=== PATIENT | male | born 1960 | race Caucasian/White ===

== ENCOUNTER 2019-04-25 11:55 | Outpatient (CLI) | payer OTHER, SELFPAY ==
--- NOTE | ~2019-04-25 | US_ITS ---
EXAMINATION: US venous doppler LE EXAM DATE: 04/25/2019 12:28 INDICATION: History DVT. Right leg pain. TECHNIQUE: Multiple grayscale, color flow and Doppler images of the right lower extremity deep venous system obtained and reviewed. Comparison is made to prior examination from 12/18/2018. FINDINGS: RIGHT SIDE Common femoral: -------- Normal. Profunda femoral: ------- Normal. Femoral: Thrombosed. Popliteal: Thrombosed. Posterior tibial: ---------Thrombosed. Peroneal: Thrombosed. Gastrocnemius: Thrombosed. Soleus: Not visualized. Greater saphenous: ----- Normal. Lesser saphenous: ------ Not visualized. IMPRESSION: 1. Extensive right lower extremity DVT Patient is waiting for results to this STAT hold and call exam. Reviewed, dictated and finalized at location B. RVISOR EDGING
== END 2019-04-25 11:56 | disposition home or self-care (01) ==
PROVIDERS: PCP Family Medicine; Visit Provider Physician Assistant Medical
DX: I82.891 Chronic embolism and thrombosis of other specified veins (principal)
CPT/HCPCS: 93971

== ENCOUNTER 2020-10-31 09:45 | Emergency (ER) | payer OTHER, SELFPAY ==
--- NOTE | ~2020-10-31 | XR_ITS ---
EXAMINATION: XR shoulder LT min 2V DATE: 10/31/2020 10:21 INDICATION: Left shoulder pain. TECHNIQUE: 4 views of left shoulder were obtained. COMPARISON: None. FINDINGS: Bone alignment is normal. No fracture. There is mild osteoarthritis of glenohumeral joint a nd moderate osteoarthritis of acromioclavicular joint. There is a left chest pacer with lead in right ventricle. IMPRESSION: 1. Polyarticular osteoarthritis. Reviewed, dictated and finalized at location B.
[2020-10-31 09:49] VITALS: BP 167/96; PULSE 73; RESP 18; TEMP 36.6; O2SAT 95
--- NOTE | 2020-10-31 12:02 | ED.UPPEXIN ---
HPI - Extremity Injury (Upper) General Chief Complaint: Extremity Injury, Upper Stated Complaint: L shoulder pain, fall yesterday Time Seen by Provider: 10/31/20 11:25 Source: patient Mode of arrival: ambulatory Limitations: no limitations History of Present Illness HPI narrative: 59-year-old male Here complaining of posterior left shoulder pain after a ground-level trip and fall yesterday He landed on the back of the shoulder There was no reaching or hyperextension or anything like that involved Primarily he has discomfort when he tries to lift his arm up No numbness or weakness in the forearm He did not hit his head, he does not have any neck or back pain, does not have any neuro symptoms, no trouble breathing Related Data Home Medications Medication Instructions Recorded Confirmed vit A 1,000 unit-C 200 mg-E 60 1 tablet PO DAILY 02/15/19 09/04/20 unit-lutein 2 mg and minerals tablet astaxanthin 4 mg capsule mg PO DAILY cap 08/07/20 09/04/20 Allergies Allergy/AdvReac Type Severity Reaction Status Date / Time No Known Allergies Allergy Verified 10/31/20 11:28 Review of Systems Review of Systems: All systems reviewed & are unremarkable except as noted in HPI and below Constitutional: Constitutional: Denies headache(s) ENT: Denies headache(s) Cardiovascular: Cardiovascular: Denies chest pain and Denies dyspnea Respiratory: Respiratory: Denies cough and Denies dyspnea Gastrointestinal: Gastrointestinal: Denies nausea Musculoskeletal: Musculoskeletal: Denies back pain, Denies deformity, Reports arthralgias, Denies joint swelling and Denies numbness Integumentary/Breasts: Skin/Breast: Denies rash and Denies wounds Neurologic: Denies focal weakness and Denies numbness [facility] Past Medical History Medical History (Updated 10/31/20 @ 12:04 by Ferdinand Briscoe MD) Colon polyp Deviated septum (~1994) Dislocation, shoulder (~2001) H/O blood clots Hypertension Hypothyroid ICD (implantable cardioverter-defibrillator) battery depletion ICD (implantable cardioverter-defibrillator), single, in situ Shingles (~08/14/17) Surgical History Surgical History H/O cardiac radiofrequency ablation History of hip replacement (~07/08/18) left hip 2019 History of right hip replacement (~12/29/19) Dr. 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[employer] Gender identity (if verbalized by the patient): Male Exam Const: General: cooperative, no acute distress and alert Orientation/consciousness: patient oriented x3 (alert) HENMT: Head: normal to inspection, normocephalic, atraumatic, no contusions and no hematomas Eyes: Conjunctivae: conjunctivae normal EOM: EOMs intact bilaterally Neck: Neck: normal visual inspection, supple and no JVD Chest: Other: There is no rib tenderness just tenderness over the lower part of the scapula on the left Resp: Effort & Inspection: normal respiratory effort Auscultation: clear to auscultation bilaterally and other (BS =) Skin: General skin exam: normal color and no rashes or lesions noted Neuro: General: patient oriented x3 (alert) and moves all extremities Speech: normal speech Extrem: General: normal to inspection Other: No swelling or deformity to the left shoulder, no tenderness to the AC joint, pretty good active range of motion in all directions with the exception that resisted external rotation is painful
== END 2020-10-31 12:16 | disposition home or self-care (01) ==
PROVIDERS: Emergency Provider Emergency Medicine; PCP Family Medicine
DX: S40.012A Contusion of left shoulder, initial encounter (principal); Z86.010 Personal history of colon polyps; I10 Essential (primary) hypertension; E03.9 Hypothyroidism, unspecified; Z95.810 Presence of automatic (implantable) cardiac defibrillator; Z96.643 Presence of artificial hip joint, bilateral; M19.012 Primary osteoarthritis, left shoulder; W01.0XXA Fall on same level from slipping, tripping and stumbling without subsequent striking against object, initial encounter
CPT/HCPCS: 73030; 99283; A4565

== ENCOUNTER 2022-08-05 10:45 | Outpatient (RCR) | payer BC, SELFPAY ==
[2022-06-17 10:50] VITALS: BMI 33.5
[2022-06-17 10:51] VITALS: BMI 33.5
[2022-07-08 09:40] VITALS: BMI 33.0
[2022-08-05 10:47] VITALS: BMI 33.1
[2022-08-05 12:11] VITALS: BMI 33.1
== END 2022-08-31 08:43 | disposition home or self-care (01) ==
LOC: ANHDMC 10:45
PROVIDERS: PCP Family Medicine; Visit Provider Family Medicine
DX: R73.03 Prediabetes (principal); Z71.3 Dietary counseling and surveillance
CPT/HCPCS: 97802; 97803

== ENCOUNTER 2022-09-09 02:23 | Day surgery (SDC) | payer BC, SELFPAY ==
[2022-09-02 13:06] VITALS: BMI 33.1
[2022-09-09 12:32] VITALS: BP 133/97; PULSE 65; RESP 18; TEMP 36.1; O2SAT 98
--- NOTE | 2022-09-09 12:39 | PM.HPGS ---
History of Present Illness History of Present Illness Consent: Risks, benefits, and alternatives have been discussed and questions answered. Patient agrees to proceed with procedure. Chief complaint: hx colon polyps Narrative: Ferdinand Rosario is a 61 year old male Referred for colon cancer screening. Seven years ago he had 3 polyps removed at least 1 of which was an adenoma. [facility] Past Medical History Medical History Colon polyp Deviated septum (~1994) Dislocation, shoulder (~2001) H/O blood clots Hypertension Hypothyroid ICD (implantable cardioverter-defibrillator) battery depletion ICD (implantable cardioverter-defibrillator), single, in situ Shingles (~08/14/17) Surgical History Surgical History H/O cardiac radiofrequency ablation History of hip replacement (~07/08/18) left hip 2019 History of right hip replacement (~12/29/19) Dr. Swan Family History Family History Mother Heart disease Hypertension Father Heart disease Hypertension Cancer Other Family history of cardiovascular disease Social History Social History Smoking status: Never smoker Alcohol intake: current Alcohol use details: occasional Lack of Transportation: No Lack of Food: Never True Current Housing: I Have Housing Concerned About Future Housing: No Difficulty Paying Gas/Electric Bills: No Difficulty Paying for Meds: No Currently Unemployed: No Education: High School Diploma/GED Difficulty w/ Childcare or Family Care: No Living arrangements: with family Additional living arrangements comments: Janie Rosario - Occupation/Education: occupation 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 Gender identity (if verbalized by the patient): Male Spiritual care concerns: Yes (refusal of blood products) Meds Home Medications and Allergies Home Medications Medication Instructions Recorded Confirmed Type vit A 300 mcg-C 200 mg-E 27 1 tablet PO DAILY 02/15/19 09/02/22 History mg-lutein 2 mg and minerals tablet (Ocuvite with Lutein) astaxanthin 4 mg capsule 4 mg PO DAILY 08/07/20 09/02/22 History fluoxetine 20 mg capsule (Prozac) 20 mg PO DAILY #90 caps 10/27/21 09/02/22 Rx atorvastatin 10 mg tablet 10 mg PO QHS #90 tabs 11/10/21 09/02/22 Rx metoprolol succinate 50 mg 25 mg PO BID #180 tabs 01/21/22 09/09/22 Rx tablet,extended release 24 hr losartan 25 mg tablet 25 mg PO BID #180 tabs 02/11/22 09/02/22 Rx levothyroxine 100 mcg tablet 100 mcg PO DAILY #90 tabs 03/30/22 09/09/22 Rx (Synthroid) Allergies Allergy/AdvReac Type Severity Reaction Status Date / Time No Known Allergies Allergy Verified 09/02/22 13:02 Vital Signs Vital Signs - 24 hr 09/09/22 12:32 Temperature 36.1 C L Pulse Rate 65 Respiratory Rate 18 Blood Pressure 133/97 H Pulse Oximetry 98 Oxygen Delivery Room Air Assessment and Plan Assessment and plan (1) Colon cancer screening: Code(s): Z12.11 - Encounter for screening for malignant neoplasm of colon Status: Acute Assessment and Plan: Colonoscopy with possible biopsy or polypectomy or cautery or injection of substances.
[2022-09-09] MEDS: LACTATED RINGERS 1,000 ML 150 ML IV CONT (12:53)
[2022-09-09 12:57] LABS: Glucose Point of Care 103 mg/dl (65-105)
--- NOTE | 2022-09-09 13:00 | WPDANESEPPF ---
Anes - Initial Pre Proc Eval Procedure: Operation Date: 09/09/22 14:00 Proposed Procedures p Colonoscopy - Mikie Lora MD Date/Time: 09/09/22 13:00 Surgeon: Mikie Lora MD Pre Op Diagnosis: hx colon polyps Patient Data Age: 61 Gender: M Height: 1.91 m Weight: 115.6 kg Last Vital Signs Temp 97 F L 09/09/22 12:32 Pulse 65 09/09/22 12:32 Resp 18 09/09/22 12:32 BP 133/97 H 09/09/22 12:32 Pulse Ox 98 09/09/22 12:32 O2 Del Method Room Air 09/09/22 12:32 Allergies Allergy/AdvReac Type Severity Reaction Status Date / Time No Known Allergies Allergy Verified 09/02/22 13:02 Home Medications Medication Instructions Recorded Confirmed Type vit A 300 mcg-C 200 mg-E 27 1 tablet PO DAILY 02/15/19 09/02/22 History mg-lutein 2 mg and minerals tablet (Ocuvite with Lutein) astaxanthin 4 mg capsule 4 mg PO DAILY 08/07/20 09/02/22 History fluoxetine 20 mg capsule (Prozac) 20 mg PO DAILY #90 caps 10/27/21 09/02/22 Rx atorvastatin 10 mg tablet 10 mg PO QHS #90 tabs 11/10/21 09/02/22 Rx metoprolol succinate 50 mg 25 mg PO BID #180 tabs 01/21/22 09/09/22 Rx tablet,extended release 24 hr losartan 25 mg tablet 25 mg PO BID #180 tabs 02/11/22 09/02/22 Rx levothyroxine 100 mcg tablet 100 mcg PO DAILY #90 tabs 03/30/22 09/09/22 Rx (Synthroid) Laboratory Tests 09/09/22 12:38 POC Capillary Glucose 103 mg/dl (65-105) Patient hx anesthesia problems: none Family hx anesthesia problems: none Results Review: All pre-operative results and documents have been reviewed as part of the pre-operative evaluation. [facility] Past Medical History Medical History Colon polyp Deviated septum (~1994) Dislocation, shoulder (~2001) H/O blood clots Hypertension Hypothyroid ICD (implantable cardioverter-defibrillator) battery depletion ICD (implantable cardioverter-defibrillator), single, in situ Shingles (~08/14/17) Surgical History Surgical History H/O cardiac radiofrequency ablation History of hip replacement (~07/08/18) left hip 2019 History of right hip replacement (~12/29/19) Dr. Swan Family History Family History Mother Heart disease Hypertension Father Heart disease Hypertension Cancer Other Family history of cardiovascular disease Social History Social History Smoking status: Never smoker Alcohol intake: current Alcohol use details: occasional Lack of Transportation: No Lack of Food: Never True Current Housing: I Have Housing Concerned About Future Housing: No Difficulty Paying Gas/Electric Bills: No Difficulty Paying for Meds: No Currently Unemployed: No Education: High School Diploma/GED Difficulty w/ Childcare or Family Care: No Living arrangements: with family Additional living arrangements comments: Janie Solle - Occupation/Education: occupation 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[employer] Gender identity (if verbalized by the patient): Male Spiritual care concerns: Yes (refusal of blood products) Anes - Eval Final PreProcedure Day of Procedure 09/09/22 13:00 Patient weight: obese Heart: regular rate and rhythm Lungs: clear to auscultation Airway: Mallampati scale class II Neurological: alert and oriented Last oral intake: >/= 8 hours ASA classification: III Emergent: no Anesthetic plan: proceed Anesthesia type and monitoring: general GIVS and standard monitoring Results Review: All pre-operative results and documents have been reviewed as part of the pre-operative evaluation. Informed Consent: The patient's anesthetic plan and its attendant risks and benefits were discussed with the patient/family/POA. Questions were solicited and answers pro
[2022-09-09 13:40] VITALS: BP 122/82; PULSE 60; RESP 15; O2SAT 96
[2022-09-09 13:50] VITALS: BP 123/83; PULSE 58; RESP 20; O2SAT 99
[2022-09-09 14:00] VITALS: BP 124/84; PULSE 62; RESP 20; O2SAT 99
== END 2022-09-09 14:13 | disposition home or self-care (01) ==
PROVIDERS: PCP Family Medicine; Visit Provider Internal Medicine Gastroenterology
PROC: 0DJD8ZZ Inspection of Lower Intestinal Tract, Via Natural or Artificial Opening Endoscopic (ICD-10-PCS; CPT 45378; principal; 2022-09-09 14:00)
DX: Z12.11 Encounter for screening for malignant neoplasm of colon (principal); K57.30 Diverticulosis of large intestine without perforation or abscess without bleeding; D12.2 Benign neoplasm of ascending colon; I10 Essential (primary) hypertension; E03.9 Hypothyroidism, unspecified; Z95.810 Presence of automatic (implantable) cardiac defibrillator; E66.9 Obesity, unspecified; Z68.31 Body mass index [BMI] 31.0-31.9, adult; Z79.899 Other long term (current) drug therapy
CPT/HCPCS: 45385; 82948; 88305; J2704; J7120

== ENCOUNTER 2023-03-26 08:08 | Emergency (ER) | payer OTHER, BC, SELFPAY ==
--- NOTE | ~2023-03-26 | XR_ITS ---
XR foot RT min 3V DATE: 03/26/2023 08:39 INDICATION: Dropped box of hyaline to right foot. Right foot pain. TECHNIQUE: 4 views COMPARISON: None FINDINGS: There is a comminuted fracture of the tuft of the lateral aspect of the distal phalanx of t he great toe. No other fracture or dislocation is evident. Second through fifth hammertoe deformities. Moderate osteoarthritis at the first metatarsophalangeal joint and tarsal joints. Plantar and posterior calcaneal enthesopathy. IMPRESSION: Comminuted fracture of tuft of distal phalanx of great toe Reviewed, dictated and finalized at location B. SHOE CUTTER
--- NOTE | 2023-03-26 08:18 | ED.LOWEXIN ---
HPI - Extremity Injury (Lower) General Chief Complaint: Extremity Injury, Lower Stated Complaint: Injured foot Source: patient, RN notes reviewed and old records reviewed Mode of arrival: ambulatory Limitations: no limitations History of Present Illness HPI Narrative: 62-year-old male patient presents to [facility] complaint of right great toe pain that started last p.m after patient dropped 25 lb box of tile on to toe. Toe is not swollen painful and bruised was bleeding noted. patient denies any other injury. MD complaint: foot injury Injury: Right: toes ( great toe) Type of Injury: blunt and other ( smash injury) Related Data Home Medications Medication Instructions Recorded Confirmed vit A 300 mcg-C 200 mg-E 27 1 tablet PO DAILY 02/15/19 03/26/23 mg-lutein 2 mg and minerals tablet (Ocuvite with Lutein) vit C 250 mg-vit E 90 mg-zinc 40 1 tablet PO BID 03/26/23 03/26/23 mg-copper 1 nn-xklccz-xynics capsule (PreserVision AREDS-2) Allergies Allergy/AdvReac Type Severity Reaction Status Date / Time No Known Allergies Allergy Verified 03/26/23 08:17 Review of Systems Constitutional: Constitutional: Reports no additional constitutional complaints, Denies body ache(s), Denies chills, Denies fatigue, Denies fever(s) and Denies headache(s) Eyes: Eyes: Reports no additional eye complaints and Denies blurry vision ENT: Reports system reviewed and no additional complaints, except as documented, Denies vertigo, Denies dizziness, Denies ear discharge, Denies otalgia, Denies facial pain, Denies headache(s), Denies nasal congestion, Denies nasal discharge, Denies sinus pain, Denies sinus pressure and Denies sore throat Cardiovascular: Cardiovascular: Reports no additional cardiovascular complaints, Denies chest pain, Denies chest pain at rest, Denies rapid heart rate and Denies dyspnea Respiratory: Respiratory: Reports no additional respiratory complaints, Denies chest congestion, Denies cough, Denies pain on inspiration, Denies pain with cough and Denies dyspnea Gastrointestinal: Gastrointestinal: Denies abdominal pain, Denies diarrhea, Denies nausea and Denies vomiting Musculoskeletal: Musculoskeletal: Reports as per HPI and Reports other ( right great toe swelling and bruising) Integumentary/Breasts: Skin/Breast: Denies rash and Reports wounds Neurologic: Reports system reviewed and no additional complaints, except as documented, Denies vertigo, Denies dizziness and Denies headache(s) Endocrine: Endocrine: Denies fatigue PMFSH Past Medical History Medical History Colon polyp Deviated septum (~1994) Dislocation, shoulder (~2001) H/O blood clots Hypertension Hypothyroid ICD (implantable cardioverter-defibrillator) battery depletion ICD (implantable cardioverter-defibrillator), single, in situ Shingles (~08/14/17) Surgical History Surgical History H/O cardiac radiofrequency ablation History of hip replacement (~07/08/18) left hip 2019 History of right hip replacement (~12/29/19) Dr. Swan Family History Family History Mother Heart disease Hypertension Father Heart disease Hypertension Cancer Other Family history of cardiovascular disease Social History Social History Smoking status: Never smoker Alcohol intake: current Alcohol use details: occasional Lack of Transportation: No Lack of Food: Never True Current Housing: I Have Housing Concerned About Future Housing: No Difficulty Paying Gas/Electric Bills: No Difficulty Paying for Meds: No Currently Unemployed: No Education: High School Diploma/GED Difficulty w/ Childcare or Family Care: No Living arrangements: with family Additional living arrangements comments: Janie Abraham - Occup
[2023-03-26 08:19] VITALS: BP 126/104; PULSE 74; RESP 16; TEMP 36.3; O2SAT 99
== END 2023-03-26 09:17 | disposition home or self-care (01) ==
PROVIDERS: Emergency Provider Registered Nurse; PCP Family Medicine
DX: S92.421A Displaced fracture of distal phalanx of right great toe, initial encounter for closed fracture (principal); E03.9 Hypothyroidism, unspecified; I10 Essential (primary) hypertension; W20.8XXA Other cause of strike by thrown, projected or falling object, initial encounter
CPT/HCPCS: 73630; 99214; G0463

== ENCOUNTER 2023-06-23 07:51 | Outpatient (CLI) | payer BC, SELFPAY | END 2023-06-23 07:52 | disposition home or self-care (01) | PROVIDERS: PCP Family Medicine; Visit Provider Family Medicine | DX: H90.3 Sensorineural hearing loss, bilateral (principal) | CPT/HCPCS: 92557; 92567 ==

== ENCOUNTER 2024-10-04 15:30 | Outpatient (CLI) | payer BC, SELFPAY ==
--- OUTSIDE RECORDS SUMMARY | 2024-10-04 15:32 | XMS_ITS | Clinical Summary ---
Author Organization [facility] Address [address] [place] [address] Care Team Providers Care Shoe Repairer Apprentice Name Role Phone Austin Mcgrath MD Primary Care Provider [phone] Source Comments [facility],non-owned Affiliates and Associated Physician Practices is amultiple site organization consisting of ambulatory clinics and hospital sitesin [place], [place] and [place]. This disclosure is being madepursuant to the Care Everywhere program and may not contain all information available regarding this patient. Last updated [employer] [facility] Allergies No known active allergies Medications * Be aware that medications may not be up to date on this document. Alwaysverify current medications with the patient. aspirin (ASPIRIN) 81 MG chew tablet Take 81 mg by mouth once daily Active mirabegron ER 24hr (MYRBETRIQ) 25 MG tablet Take 25 mg by mouth once daily Active triamterene-hydr oCHLOROthiazide (DYAZIDE) 37.5-25 MG capsule Take by mouth once daily 6 06/03/2016 Active CARTIA XT 180 MG capsule Take 180 mg by mouth once daily 5 06/03/2016 Active losartan (COZAAR) 25 MG tablet Take one tablet by mouth every day 30 tablet 11 01/12/2017 Active Active Problems Problem Noted Date Diagnosed Date NSVT (nonsustained ventricular tachycardia) 06/14 Benign essential HTN 07/03/2016 Atrial fibrillation 07/03/2016 Social History Tobacco Use Types Packs/Day Years Used Date Smoking Tobacco: Never Sex and Gender Information Value Date Recorded Sex Assigned at Male 04/19/2023 11:07 AM 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 Legal Sex Male 6:58 AM [employer] 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 Gender Identity Male 04/19/2023 11:07 AM [employer] 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 Sexual Orientation Straight 04/19/2023 11 :07 AM [employer] 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 Last Filed Vital Signs Vital Sign Reading Time Taken Comments Blood Pressure 134/90 07/01/2016 3:03 PM CDT Pulse 72 07/01/2016 3:03 PM CDT Temperature 36.6 C (97.8 F) 03/08/2016 12:12 PM 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 Respiratory Rate 18 07/01/2016 3:03 PM CDT Oxygen Saturation 96% 03/08/2016 12:12 PM 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 Inhaled Oxygen Concentration - - Weight 117.9 kg (260 lb) 07/01/2016 3:03 PM CDT Height 190.5 cm (6' 3) 07/01/2016 3:03 PM CDT Body Mass Index 32.5 07/01/2016 3:03 PM CDT Plan of Treatment Health Maintenance Due Date Last Done Comments COLOGUARD (AGES 45-75) - COL ON CA SCREENING 1962 COLON MONITORING 1962 COLONOSCOPY - COLON CA SCREENING 1962 CT COLONOGRAPHY - COLON CA SCREENING 1962 Colorectal Cancer Screening 1962 FIT - COLON CA SCREENING 1962 FLEX SIG - COLON CA SCREENING 1962 LIPID TESTING 1962 HIV SCREENING 1977 HEPATITIS C SCREENING 12/01/1980 DTAP/TDAP/TD VACCINES (1 - Tdap) 1981 PNEUMOCOCCAL VACCINE 50+ (1 of 1 - PCV) 2012 ZOSTER VACCINE (1 of 2) 2012 SCREENING FOR DIABETES 03/08/2019 6, 03/07/2016 COVID-19 VACCINE (1 - 2023-2 5 season) 2023 DEPRESSION SCREENING 03/15/2024 INFLUENZA VACCINE (#1) 2024 Respiratory Syncytial Virus (RSV) Vaccine Pt: or over 60 yrs (1 - 1-dose 75+ series) 2037 HEPATITIS B VACCINE Aged Out No longe r eligible based on patient's age to complete this topic HIB VACCINE Aged Out No longer eligi ble based on patient's age to complete this topic HPV VACCINE Aged Out No longer eligi ble based on patient's age to complete this topic MENINGOCOCCAL (Group B) VACCINE SHARED DECISION-MAKING Aged Out No longer eligible based on patient's age to complete this topic MENINGOCOCCAL GROUPS A/C/Y/W VACCINE Aged Out No longer eligible b ased on patient's age to complete this topic Procedures Procedure Name Priority Date/Time Associated Diagnosis Comments BASIC METABOLIC PANEL (CALCIUM TOTAL) AM Draw 03/08/2016 4:09 AM 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 Atrial fibrillation with RVR from Last 3 Months or Most Recently Relevant to Health Maintenance Results * (ABNORMAL) BASIC METABOLIC PANEL (CALCIUM TOTAL) (03/08/2016 4:09 AM [facility]) Glucose 117(H) 74 - 106 mg/dL 03/08/2016 4:34 AM [facility] Sodium 139 136 - 145 mmol/L 03/08/2016 4:34 AM [facility] Potassium 4.4 3.5 - 5.1 mmol/L 03/08/2016 4:34 AM [facility] Chloride 107 98 - 107 mmol/L 03/08/2016 4:34 AM [facility] CO2 25 22 - 31 mmol/L 03/08/2016 4:34 AM [facility] Calcium 8.7 8.5 - 10.1 mg/dL 03/08/2016 4:34 AM [facility] Anion Gap 7(L) 8 - 16 mmol/L 03/08/2016 4:34 AM [facility] BUN 15 7 - 21 mg/dL 03/08/2016 4:34 AM [facility] Creatinine 1.10 0.50 - 1.30 mg/dL 03/08/2016 4:34 AM [facility] eGFR by MDRD >60 >60 mL/min/1.7 3m2 03/08/2016 4:34 AM [facility] eGFR by MDRD >60 >60 mL/min/1.7 3m2 03/08/2016 4:34 AM [facility] Blood BLOOD SPECIMEN / Unknown 03/08/2016 4:09 AM 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 03/08/2016 4:14 AM [facility] Mani Jackson MD LAB - CHEMISTRY ORDERABLES Kelly l Result [facility] [id number] [place] [address] from Last 3 Months or Most Recently Relevant to Health Maintenance Insurance [facility] BCBS/[employer] [facility] [facility] Advance Directives Documents on File Type Date Recorded Patient Hog Killer Expl anation Adv Directive/Living Will/POA 03/10/2016 9:45 PM * Full Code (Latest Code Status on File) Date Activated Date Inactivated Comments 03/07/2016 8:46 AM 03/08/2016 4:56 PM Care Teams Shoe Repairer Apprentice Relationship Specialty Start Date End Date Austin Mcgrath MD [address] [place] [address] PCP - General Family Medicine 03/07/16
--- OUTSIDE RECORDS SUMMARY | 2024-10-04 15:32 | XMS_ITS | Clinical Summary ---
Author Organization [facility] Address [facility] [place] [address] Care Team Providers Care Parking Enforcement Specialist Name Role Phone Austin Mcgrath MD Primary Care Provider [phone]- [phone] Alejandro Johnson MD Unavailable Allergies No known active allergies Medications losartan 25 MG tablet Take 1 tablet (25 mg total) by mouth 2 (two) times daily. 7 Active metoprolol succinate ER 50 MG 24 hr tablet Take 1 tablet (50 mg total) by mouth daily. 90 tablet 3 0 Active Additional Information Patient taking differently: 25 mgOral2 times daily, Reported on 06/21/2023 levothyroxine 100 MCG tablet Take 1 tablet (100 mcg total) by mouth daily. 1 Active atorvastatin (LIPITOR) 10 MG tablet Take 1 tablet (10 mg total) by mouth nightly at bedtime. at bedtime 2 Active multi vitamin/mineral s (PRESERVISION AREDS) Tab 3 Active sertraline (ZOLOFT) 25 MG tablet Take 1 tablet (25 mg total) by mouth daily. 4 Active metFORMIN ER (GLUCOPHAGE-XR) 500 MG 24 hr tablet Take 1 tablet (500 mg total) by mouth daily with breakfast. 4 Active Active Problems Problem Noted Date Diagnosed Date ICD (implantable cardioverter-defibrillator) in place 06/16/2022 CHF (congestive heart failure) ([facility]) 12/28/2019 History of DVT (deep vein thrombosis) 12/28/2019 Hypothyroidism affecting ([facility]) Ventricular tachycardia ([facility]) 2018 VT (ventricular tachycardia) ([facility]) 1 03/27/2018 Syncope and collapse 01/24/2019 Atrial fibrillation ([facility]) 07/03/2016 Benign essential HTN 07/03/2016 Encounters Date Type Department Care Team Description 08/14/2024 11:40 AM CDT Allied Health/Nurse Visit [facility], [address] [address] Alejandro Johnson MD Remote Device Check from Last 3 Months Immunizations Immunization Administration Dates Next Due Afluria 36 MONTHS+ (Prefilled Syringe IIV4) 01/13(Deferred: Other) Family History Medical History Relation Comments pacemaker Father Sudden Mother Relation Status Comments Father Mother Social History Tobacco Use Types Packs/Day Years Used Date Smoking Tobacco: Never Smokeless Tobacco: Never Tobacco Cessation:Counseling Given: Not Answered Sex and Gender Information Value Date Recorded Sex Assigned at Not on file Legal Sex Male 8:05 PM CDT Gender Identity Not on file Sexual Orientation Not on file Last Filed Vital Signs Vital Sign Reading Time Taken Comments Blood Pressure 120/78 06/19/2024 9:36 AM CDT Pulse 72 06/19/2024 9:36 AM CDT Temperature 36.8 C (98.2 F) 04/12/2019 8:30 AM 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 [address] [place], [place] [address] 06/25/2025 9:00 AM CDT Office Visit [facility], [address] [place], [place] [id number] Alejandro Johnson MD [facility]. [address] [place], [place] [id number] Health Maintenance Due Date Last Done Comments Colorectal Cancer Screening Colonoscopy (10 Years) 1962 Annual Physical 1965 Hepatitis C 1980 DTaP, Tdap and Td Vaccines ( 1 - Tdap) 1981 Pneumococcal Vaccine: 50+ Years (1 of 2 - PCV) 1981 Zoster Vaccines (1 of 2) 2012 RSV Immunization or 60+ Years (1 - Risk 60-74 years 1-dose series) 2022 COVID-19 Vaccine (3 - 2023-2 5 season) 2023 06/07/2020, 05/10/2020 Meningococcal B Vaccine Aged Out No l onger eligible based on patient's age to complete this topic Meningococcal Vaccine Aged Out No norma padma eligible based on patient's age to complete this topic RSV Immunizations Under 20 Months Aged Out No longer eligible b ased on patient's age to complete this topic Medical Devices Implanted Type Area Lard Renderer Device Identifier Shelf Expiration Date Model / Serial / Lot Bs Icd-03/22/2019 Implanted:10/2019 by Alejandro Johnson MD (Quantity not on file) ICD [employer] [id number] / [id number] / Rv Lead-03/22/2019 Implanted:10/2019 by Alejandro Johnson MD (Quantity not on file) Lead Implant [employer] [id number] / [id number] / Insurance Advance Directives Documents on File Type Date Recorded Patient Flare Worker Expl anation Advance Directives and Living Will 03/23/2019 7:17 AM 06-03-10 Signed POA f or Health Care * Full Code (Latest Code Status on File) Date Activated Date Inactivated Comments 04/11/2019 4:27 PM 04/12/2019 1:05 PM * Full Code Date Activated Date Inactivated Comments 04/11/2019 3:41 PM 04/11/2019 4:27 PM * Full Code Date Activated Date Inactivated Comments 03/22/2019 12:40 PM 03/23/2019 12:41 PM * Full Code Date Activated Date Inactivated Comments 01/25/2019 2:48 PM 01/26/2019 6:54 PM * Full Code Date Activated Date Inactivated Comments 01/25/2019 1:06 PM 01/25/2019 2:48 PM Care Teams Parking Enforcement Specialist Relationship Specialty Start Date End Date Austin Mcgrath MD PCP - General FAMILY PRACTICE 01/25/19 Alejandro Johnson MD [address] [address] EP Director Distribution CLINICAL CARDIAC ELECTROPHYSIOLOGY 02/07/19
--- OUTSIDE RECORDS SUMMARY | 2024-10-04 15:33 | XMS_ITS | Encounter Summary ---
Author Organization [facility] Address [facility] [place] [address] Care Team Providers Care Prepress Stripper Name Role Phone Austin Mcgrath MD Primary Care Provider +1- [phone] Alejandro Johnson MD Unavailable Encounter Details Date Type Department Care Team (Late st Contact Info) Description 04/10/2019 Hospital Orders Only [facility], [facility] [address] [place], [place] [id number] Alejandro Johnson MD [facility]. [facility] [address] [place], [place] [id number] Social History Tobacco Use Types Packs/Day Years Used Date Smoking Tobacco: Never Smokeless Tobacco: Never Sex and Gender Information Value Date Recorded Sex Assigned at Not on file Legal Sex Male 8:05 PM CDT Gender Identity Not on file Sexual Orientation Not on file documented as of this encounter Functional Status * RETIRED Are you deaf or do you have serious difficulty hearing Answer Date of Assessment Author Status No 03/22/2019 1:00 PM DATA LEAD Activ e * RETIRED Are you blind or do you have serious difficulty seeing, even when wearing glasses? Answer Date of Assessment Author Status No 03/22/2019 1:00 PM DATA LEAD Activ e * Do you have serious difficulty walking or climbing stairs? Answer Date of Assessment Author Status No 03/22/2019 1:00 PM DATA LEAD Glenna Hutchison RN Active * Do you have difficulty dressing or bathing? Answer Date of Assessment Author Status No 03/22/2019 1:00 PM Glenna Dubois RN Active * Because of a physical, mental, or emotional condition, do you have difficulty doing errands alone such as visiting a doctor's office or shopping? Answer Date of Assessment Author Status No 03/22/2019 1:00 PM Glenna Dubois RN Active documented as of this encounter Mental Status * Because of a physical, mental, or emotional condition, do you have serious difficulty concentrating, remembering, or making decisions? Answer Entry Date Author Status No 03/22/2019 1:00 PM Glenna Dubois RN Active documented in this encounter Plan of Treatment Upcoming Encounters Date Type Department Care Team (Late st Contact Info) Description 11/13/2024 11:40 AM CDT Allied Health/Nurse Visit [place] [facility], [address] [place], [place] [address] Alejandro Johnson MD [facility]. [address] [place], [place] [address] 06/25/2025 9:00 AM CDT Office Visit [place] [facility], [address] [place], [place] [phone] Alejandro Johnson MD [facility]. [address] [place], [place] [address] documented as of this encounter Visit Diagnoses Diagnosis VT (ventricular tachycardia) ([facility])- Primary Paroxysmal ventricular tachycardia documented in this encounter Care Teams Prepress Stripper Relationship Specialty Start Date End Date Austin Mcgrath MD PCP - General FAMILY PRACTICE 01/25/19 Alejandro Johnson MD [facility]. [address] [place], [place] [address] EP It Corporate Recruiter CLINICAL CARDIAC ELECTROPHYSIOLOGY 02/07/19 documented as of this encounter
--- OUTSIDE RECORDS SUMMARY | 2024-10-04 15:33 | XMS_ITS | Clinical Summary ---
Author Organization [facility] [address] Address [address] [place] [address] Care Team Providers Care Bass Mechanism Maker Name Role Phone Austin Mcgrath MD Primary Care Provider [phone] [phone] Allergies No known active allergies Medications ASTAXANTHIN ORALIndications: eye health Take 1 each by mouth nightly Active levothyroxine (SYNTHROID) 100 mcg tabletIndication s:hypothyroidism Take 100 mcg by mouth industrial design engineer before breakfast 0 Active FLUoxetine (PROzac) 20 mg capsuleIndicatio ns:depression Take 20 mg by mouth nightly 9 Active losartan (COZAAR) 25 mg tabletIndication s:hypertension Take 25 mg by mouth nightly 7 Active metoprolol XL (TOPROL-XL) 50 mg extended release tablet Take 50 mg by mouth nightly 0 Active celecoxib (CeleBREX) 200 mg capsuleIndicatio ns:Osteoarthriti s,Postoperative Acute Pain TAKE 2 PILLS WITH BREAKFAST THE DAY BEFORE SX. TAKE 1 PILL BID AFTER DISCHARGE. 10 capsule 0 Active vit C/vit E/lutein/min/ome ga-3 (OCUVITE ORAL)Indications :eye health Take 1 tablet by mouth nightly Active rivaroxaban (XARELTO) 10 mg tabletIndication s:VTE Prophylaxis Following Ortho Surgery,Preventi on of VTE recurrence Take 1 tablet (10 mg total) by mouth daily for 7 days 7 tablet 0 Active Active Problems Problem Noted Date Diagnosed Date A-fib 12/28/2019 Pacemaker 12/28/2019 Hypertension 12/28/2019 History of DVT (deep vein thrombosis) 12/28/2019 Hypothyroidism 12/28/2019 Class 1 obesity in adult 12/28/2019 CHF (congestive heart failure) 12/28/2019 Primary osteoarthritis of right hip 12/13/2019 Overview (12/13/2019): Added automatically from request for surgery [id number] Syncope and collapse 01/24/2019 Paroxysmal ventricular tachycardia 01/24/2019 Surgical History Surgery Date Site/Laterality Comments TOTAL HIP ARTHROPLASTY 03/15/2018 - 03/14/2019 Left left hip ARTERIAL THROMBECTOMY dvt right leg CARDIAC DEFIBRILLATOR PLACEMENT 03/15/2019 - 04/14/2019 ABLATION for VT COLONOSCOPY Medical History Medical History Date Comments Hypertension OA (osteoarthritis) VT (ventricular tachycardia) (HCC) DVT (deep venous thrombosis) (HCC) A-fib (HCC) Refusal of blood transfusions as patient is Jeho vah's Witness Dilated cardiomyopathy (HCC) Family History Medical History Relation Name Comments COPD Father Heart attack Mother Anesthesia problems Neg Hx Relation Name Status Comments Brother Father (Age 84) heart dise ase//lung cancer//copd Mother heart attack Sister Alive breast cancer Social History Tobacco Use Types Packs/Day Years Used Date Smoking Tobacco: Never Smokeless Tobacco: Never Alcohol Use Standard Drinks/Week Comments Yes 0 (1 standard drink = 0.6 oz pur e alcohol) rare AUDIT-C Answer Date Recorded Frequency of Alcohol Consumption Never 01/24/2019 Average Number of Drinks Not on file 019 Frequency of Binge Drinking Not on file 01/13 Sex and Gender Information Value Date Recorded Sex Assigned at Not on file Legal Sex Male 9:56 AM 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 Gender Identity Male 04/19/2023 10:47 AM 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 Sexual Orientation Straight 04/19/2023 10 :47 AM 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 Obstetrics History Last Filed Vital Signs Vital Sign Reading Time Taken Comments Blood Pressure 122/75 10/03/2020 2:22 PM CDT Pulse 66 10/03/2020 2:22 PM CDT Temperature 36.7 C (98.1 F) 12/30/2019 3:15 AM CDT Respiratory Rate 20 12/30/2019 6:55 AM CDT Oxygen Saturation 97% 12/30/2019 6:55 AM CDT Inhaled Oxygen Concentration - - Weight 118.4 kg (261 lb) 10/03/2020 2:22 PM CDT Height 190.5 cm (6' 3) 10/03/2020 2:22 PM CDT Body Mass Index 32.62 10/03/2020 2:22 PM CDT Plan of Treatment Not on file Medical Devices Implanted Type Area Carriage Operator Device Identifier Shelf Expiration Date Model / Serial / Lot [employer] [id number] Cup 55mm Acetabular Bi Mentum Femoral Proximal Press Fit - Sn/A - [id number] Implanted:Qty: 1 on 12/29/2019 by Andre Swan MD at [facility] Other - see comments Right: Hip [employer] 01/12/2023 [id number] / N/A / [id number] [employer] [id number] Liner 55mm 28mm Acetabular Bi Mentum Femoral Proximal Polyethylene - Sn/A - [id number] Implanted:Qty: 1 on 12/29/2019 by Andre Swan MD at [facility] Other - see comments Right: Hip [employer] [id number] 09/12/2023 [id number] / N/A / [id number] [employer] [id number] Actis Collared Hip 14 6 Standard Offset Stem Femoral - Sn/A - [id number] Implanted:Qty: 1 on 12/29/2019 by Andre Swan MD at [facility] Other - see comments Right: Hip [employer] [id number] 08/12/2029 [id number] / N/A / [id number] [employer] [id number] Articul/Rick 28mm Cementless Hip +8.5mm /14 Taper Head Femoral Latex Free - Sn/A - [id number] Implanted:Qty: 1 on 12/29/2019 by Andre Swan MD at [facility] Other - see comments Right: Hip [employer] 08/12/2024 [id number] / N/A / [id number] Left Hip Replacement Left: Hip Icd-03/22/2019 Implanted:03/22 (Quantity not on file) Left: Chest [place] Insurance [facility] AETNA SIGNATURE Advance Directives For more information, please contact: [phone] Documents on File Type Date Recorded Patient Claims Consultant Expl anation ADVANCE DIRECTIVE 12/21/2019 1:23 PM Power of Horologist-Medical * Full Code (Latest Code Status on File) Date Activated Date Inactivated Comments 12/29/2019 2:58 PM 12/30/2019 6:39 PM Care Teams Bass Mechanism Maker Relationship Specialty Start Date End Date Mulligan, Austin E., MD PCP - General Family Medicine 12/17/18
--- OUTSIDE RECORDS SUMMARY | 2024-10-04 15:33 | XMS_ITS | Referral Summary ---
Author Organization [facility] [address] Address [address] [place] [address] Care Team Providers Care Director Supplier Quality Name Role Phone Austin Mcgrath MD Primary Care Provider +1 -[phone] Allergies No known active allergies Medications ASTAXANTHIN ORALIndications: eye health Take 1 each by mouth nightly Active levothyroxine (SYNTHROID) 100 mcg tabletIndication s:hypothyroidism Take 100 mcg by mouth eye surgeon before breakfast 0 Active FLUoxetine (PROzac) 20 [...] (12/13/2019): Added automatically from request for surgery [id number] Syncope and collapse 01/24/2019 Paroxysmal ventricular tachycardia 01/24/2019 Social History Tobacco Use Types Packs/Day Years [...] on file Legal Sex Male 9:56 AM 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 Other - see comments Right: Hip [employer] 01/12/2023 [id number] / N/A / [id number] [employer] [id number] Liner 55mm 28mm Acetabular Bi Mentum Femoral Proximal Polyethylene - Sn/A - [id number] Implanted:Qty: 1 on 12/29/2019 by Andre Swan MD at [facility] Other - see comments Right: Hip [employer] [id number] 09/12/2023 [id number] / N/A / [id number] [employer] [id number] Actis Collared Hip /14 6 Standard Offset Stem Femoral - Sn/A - [id number] Implanted:Qty: 1 on 12/29/2019 by Andre Swan MD at [facility] Other - see comments Right: Hip [employer] [id number] 08/12/2029 [id number] / N/A / [id number] [employer] [id number] Articul/Rick 28mm Cementless Hip +8.5mm 12/14 Taper Head Femoral Latex Free - Sn/A - [id number] Implanted:Qty: 1 on 12/29/2019 by Andre Swan MD at [facility] Other - see comments Right: Hip [employer] 08/12/2024 [id number] / N/A / [id number] Left Hip Replacement Left: Hip Icd-03/22/2019 Implanted:03/22 (Quantity not on file) Left: [facility] [employer] Insurance [facility] AETNA SIGNATURE [facility] AETNA SIGNATURE Advance Directives For more information, please contact: [phone] Documents on File Type Date Recorded Patient Social Welfare Administrator Expl anation ADVANCE DIRECTIVE 12/21/2019 1:23 PM Power of Channeler Insole-Medical * Full Code (Latest Code Status on File) Date Activated Date Inactivated Comments 12/29/2019 2:58 PM 12/30/2019 6:39 PM Care Teams Director Supplier Quality Relationship Specialty Start Date End Date Austin Mcgrath MD PCP - General Family Medicine 12/17/18
[2024-10-04 18:31] LABS: Magnesium 2.3 mg/dL (1.6-2.3)
[2024-10-04 18:42] LABS: Hemoglobin A1C 6.0 % (<5.7)
[2024-10-04 19:07] LABS: Prostate Specific Antigen 2.6 ng/mL (< OR = 4.0)
== END 2024-10-04 15:31 | disposition home or self-care (01) ==
LOC: ANHGOSHLAB 15:31
PROVIDERS: PCP Family Medicine; Visit Provider Nurse Practitioner Family
DX: F32.9 Major depressive disorder, single episode, unspecified (principal); R73.01 Impaired fasting glucose; Z12.5 Encounter for screening for malignant neoplasm of prostate; R53.83 Other fatigue; Z79.899 Other long term (current) drug therapy
CPT/HCPCS: 36415; 83036; 83735; 84153; G0103